=== PATIENT | male | born 1990 | race Two or more races ===

== ENCOUNTER 2025-01-26 17:09 | Emergency (ER) | payer BC ==
[~2025-01-26] VITALS: Ht 182.9 cm; Wt 93.9 kg
[2025-01-26] MEDS ORDERED: KETOROLAC TROMETHAMINE 60 MG VIAL IM ONE (18:15)
[2025-01-26 18:33] LABS: BASO % 0.5 % (0.1-1.2); EOS # 0.17 (0.04-0.54); EOS % 1.3 % (0.7-7.0); LYMPH # 2.35 (1.18-3.74); LYMPH % 18.4 % (19.3-53.1); MEAN PLATELET VOLUME 9.30 fl (9.4-12.4); MONO # 0.86 (0.24-0.82); MONO % 6.7 % (4.7-12.5); NEUT # 9.31 (1.56-6.13); NEUT % 72.9 % (34.0-71.1); RED CELL DISTRIBUTION WIDTH 13.4 % (11.6-14.4)
[2025-01-26 18:58] LABS: URINE APPEARANCE Clear; URINE BILIRRUBIN Negative (NEGATIVE); URINE BLOOD Small; URINE COLOR Dark Yellow; URINE GLUCOSE Negative (NEGATIVE); URINE KETONE Negative (NEGATIVE); URINE LEUKOCYTE Trace; URINE NITRATE Positive; URINE PROTEIN Negative (NEGATIVE); URINE UROBILINOGEN 1.0 E.U./dl
[2025-01-26 18:58] LABS: ALT/SGPT 36.0 U/L (12-78); AST/SGOT 32.0 U/L (15-37); BILIRUBIN TOTAL 0.85 mg/dL (0.3-1.2); BILIRUBIN,CONJUGATED 0.2 mg/dL (0.0-0.2)
[2025-01-26 18:59] LABS: ALT/SGPT 37.0 U/L (12-78); AST/SGOT 33.0 U/L (15-37); BILIRUBIN TOTAL 0.82 mg/dL (0.3-1.2); BUN CREA RATIO 7.0 (7.0-25.0); CREATININE SERUM 1.08 mg/dL (0.70-1.30); GFR 78.27; GLOBULINA 3.5 G/DL (2.4-3.5); GLUCOSE FASTING 96.0 mg/dL (65-100); OSMOLALITY SERUM 272.0 MOSM/KG (275-295)
[2025-01-26 19:03] LABS: URINE BACTERIA 1.2 uL (0.0-1933); URINE CAST 0.00 uL (0.0-1.40); URINE EPITHELIAL CELLS 0.1 uL (0.0-38.8); URINE RBC 0.2 uL (0.0-20.8); URINE WBC 0 uL (0.0-23.2)
[2025-01-26] MEDS ORDERED: TAMSULOSIN HCL 0.4 MG CAP PO ONE (21:30)
== END 2025-01-26 21:43 | disposition home or self-care (01) ==
LOC: ER 17:09
PROVIDERS: Emergency Medicine
DX: R33.9 Retention of urine, unspecified (principal)